=== PATIENT | female | born 1925 | race Caucasian/White ===

== ENCOUNTER → 2016-09-22 | Outpatient (CLI) | payer BC ==
[~2016-09-22] MED LIST: AMLO2.5T PO; ASPCH81X PO; ATOR-14 PO; BNC40 PO; CHOL100010 PO; CLTP PO; COQ10100 PO; METF1TAB53 PO; MULT-506 PO; OMEG10007 PO; PRLSR20 PO; RANI300T2 PO; TOLT2TAB9 PO; TPRSR/100 PO
[2016-09-22 13:42] LABS: PATIENT HEIGHT 147.3 cm
--- NOTE | 2016-09-22 14:26 | DIAGNOSTIC IMAGING REPORT ---
ULTRASOUND KIDNEYS AND BLADDER CLINICAL HISTORY: Hypertension. COMPARISON STUDY: Abdominal CT dated 11/27/2015. TECHNIQUE: Real-time, grayscale, and color flow sonography of the kidneys and bladder is performed. Images are reviewed in the transverse and longitudinal planes. FINDINGS: Kidneys: The kidneys demonstrate cortical atrophy. The right kidney measures 9.2 x 3.8 x 4.3 cm and the left kidney measures 9.1 x 5.0 x 4.5 cm. There is no hydronephrosis. No shadowing renal calculi are identified. A 1.8 cm cyst is noted in the right upper pole. There is no sonographic evidence of solid renal mass lesion. No perinephric fluid is identified. Bladder: The bladder is normal as imaged. Ureteral jets were not seen. IMPRESSION: 1. The kidneys demonstrate cortical atrophy and are without hydronephrosis. 2. The bladder is normal as imaged. Electronically signed by: David Rosas M.D. 09/22/2016 2:24 PM Dictated Date/Time: 09/22/2016 2:22 PM
[2016-09-22 15:12] LABS: HEMATOCRIT 39.4 % (37-47); MEAN CELL VOLUME 93.1 fL (80-100); MEAN CORPUSCULAR HEMOGLOBIN 33.3 pg (25-34); MEAN CORPUSCULAR HGB CONC 35.8 g/dl (32-36); MEAN PLATELET VOLUME 10.1 fL (7.4-10.4); PLATELET COUNT 242 K/uL (130-400); RED BLOOD COUNT 4.23 M/uL (4.2-5.4); WHITE BLOOD COUNT 5.27 K/uL (4.8-10.8)
[2016-09-22 15:26] LABS: BLOOD UREA NITROGEN 23 mg/dl (7-18); BUN/CREATININE RATIO 20.7 (10-20); CARBON DIOXIDE 30 mmol/L (21-32); CHLORIDE 104 mmol/L (98-107); GLUCOSE 113 mg/dl (70-99); POTASSIUM 3.8 mmol/L (3.5-5.1); SODIUM 140 mmol/L (136-145)
[2016-09-22 15:36] LABS: URINE TOTAL PROTEIN < 5.0 mg/dl (0-11.9)
[2016-09-22 15:40] LABS: URINE PROTIEN/CREAT RATIO 0.4 (0-0.2); URINE TOTAL PROTEIN 19.5 mg/dl (0-11.9)
[2016-09-22 15:40] LABS: ALB/GLOB RATIO 0.8 (0.9-2); ALKALINE PHOSPHATASE 61 U/L (45-117); ALT/SGPT 23 U/L (12-78); AST/SGOT 17 U/L (15-37)
[2016-09-22 15:44] LABS: URINE APPEARANCE CLEAR (CLEAR); URINE BILIRUBIN NEG (NEG); URINE COLOR YELLOW; URINE EPITHELIAL CELL AUTO >30 /lpf (0-5); URINE NITRITE NEG (NEG); URINE SPECIFIC GRAVITY 1.013 (1.000-1.030); UROBILINOGEN NEG (NEG)
[2016-09-22 16:03] LABS: MANUAL MICROSCOPIC REQUIRED? NO; REVIEW REQ? NO
[2016-09-22 19:55] LABS: URINE COLLECTION TIME 24 HOURS; URINE TOTAL PROTEIN CALC < 75.0 mg/24 hr (0-149.1)
--- NOTE | 2016-09-28 07:25 | CODING QUERY MEDICAL NECESSITY ---
CQSUPPORTING DIAGNOSIS NEEDED A supporting diagnosis is required for the test/procedure performed on this patient in order for us to be reimbursed by the patient's insurance. Please provide a supporting diagnosis for the following test/procedure listed below next to the test name along with your signature. *If there is no additional diagnosis for this patient that would support the following test/procedure please document that below next to the test/procedure. Test(s)/Procedure(s) that require a supporting diagnosis: DOS 09/22/16 VITAMIN D TEST Provider Signature: Date: Thank you Jessica Cosme Health Information Management Once completed, please kindly fax back to [phone] For questions please call [phone]
== END ==
LOC: C.ULTR 13:13
PROVIDERS: ATTEND Internal Medicine Nephrology
DX: I10 Essential (primary) hypertension (principal); E55.9 Vitamin D deficiency, unspecified

== ENCOUNTER → 2016-10-10 | Outpatient (CLI) | payer BC ==
--- NOTE | 2016-10-11 13:09 | MAMMOGRAPHY REPORT ---
BILATERAL DIGITAL SCREENING MAMMOGRAM WITH CAD: 10/10/2016 CLINICAL HISTORY: Routine screening. TECHNIQUE: Bilateral CC, MLO, repeat MLO and left X cc L views were obtained. Current study was als o evaluated with a Computer Aided Detection (CAD) system. COMPARISON: Comparison is made to exams dated: 09/30/2014 mammogram, 10/05/2015 mammogram, 09/25/2013 mammogram, 09/24/2012 mammogram, 09/22/2011 mammogram, and 09/21/2010 mammogram - [facility]. BREAST COMPOSITION: There are scattered areas of fibroglandular density in both breasts. FINDINGS: There are mild to moderate vascular calcifications in the breasts. Stable groupings of mi crocalcifications in each upper outer quadrant appear similar dating back to at least 04/20/2009, th erefore likely benign. No new suspicious mass, architectural distortion or cluster of microcalcific ations is seen. IMPRESSION: ACR BI-RADS CATEGORY 1: NEGATIVE There is no mammographic evidence of malignancy. A 1 year screening mammogram is recommended. The p atient will receive written notification of the results. Approximately 10% of breast cancers are not detected with mammography. A negative mammographic repor t should not delay biopsy if a clinically suggestive mass is present. Tayler Morgan M.D. ay/:10/10/2016 16:40:04 [employer]: [employer](R)(M), [facility] letter sent: Normal 1/2 BI-RADS Code: ACR BI-RADS Category 1: Negative
== END | disposition home or self-care (01) ==
LOC: C.MAMM 12:58
PROVIDERS: ATTEND Family Medicine
DX: Z12.31 Encounter for screening mammogram for malignant neoplasm of breast (principal)

== ENCOUNTER → 2016-11-08 | Outpatient (CLI) | payer BC ==
--- NOTE | 2016-11-08 13:07 | DIAGNOSTIC IMAGING REPORT ---
LEFT KNEE 1 OR 2 VIEWS ROUTINE CLINICAL HISTORY: LEFT KNEE PAIN COMPARISON: None. 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 No acute fractures are visualized. There are no dislocations. There is no evidence of a significant joint effusion. Patellar irregularity is likely chronic. IMPRESSION: Postsurgical change. No acute fractures or dislocations are visualized Electronically signed by: Hari Guevara M.D. 11/08/2016 1:06 PM Dictated Date/Time: 11/08/2016 1:06 PM
== END | disposition home or self-care (01) ==
LOC: C.RAD1850 12:50
PROVIDERS: ATTEND Family Medicine
DX: E03.9 Hypothyroidism, unspecified (principal); E78.2 Mixed hyperlipidemia; I10 Essential (primary) hypertension; N18.9 Chronic kidney disease, unspecified; M25.562 Pain in left knee; Z98.890 Other specified postprocedural states

== ENCOUNTER → 2017-01-10 | Outpatient (CLI) | payer BC | END | disposition home or self-care (01) | LOC: C.MAMM 13:02 | PROVIDERS: ATTEND Nurse Practitioner Family | DX: Z13.820 Encounter for screening for osteoporosis (principal); M85.89 Other specified disorders of bone density and structure, multiple sites ==